=== PATIENT | female | born 1975 | race Caucasian/White ===

== ENCOUNTER 2018-03-26 00:31 | Emergency (ER) | END 2018-03-26 03:56 | disposition home or self-care (01) ==

== ENCOUNTER 2018-08-03 12:00 | Inpatient (IN) | END 2018-08-05 15:45 | disposition home or self-care (01) | DRG 572 ==

== ENCOUNTER 2018-08-07 14:12 | Emergency (ER) | END 2018-08-07 19:37 | disposition home or self-care (01) ==

== ENCOUNTER 2019-04-25 08:03 | Observation (INO) | payer BC ==
[2019-04-25] VITALS (22 sets, daily range): BP systolic 100–137; BP diastolic 61–80; PULSE 58–92; RESP 10–18; Ht 170.2 cm; Wt 99.4 kg
[~2019-04-25] VITALS: Ht 170.2 cm; Wt 99.4 kg
[2019-04-25] MEDS: SOD CHLORIDE 0.9% 1,000 ML IV SCH ×2 (07:00→20:20)
[~2019-04-25 08:03] MED LIST: ALPR0.254 PO; BEN25 PO; BISA5TAB6 PO; DOCU-144 PO; HYDR-3601 PO; IBUP-1542 PO; NICO-546 TD; OXYC-279 PO; POLY17PO6 PO
[2019-04-25] MEDS ORDERED: MIDAZOLAM 1 MG/ML 2 ML INJ ONE (11:05)
[2019-04-25] MEDS ORDERED: PROPOFOL 20 ML ONE (11:05)
[2019-04-25] MEDS ORDERED: CLINDAMYCIN 900 MG (PMX) 50 ML IVPB ONE (11:05)
[2019-04-25] MEDS ORDERED: SUCCINYLCHOLINE CHLORIDE 100 MG/5 ML SYG IV ONE (11:05)
[2019-04-25] MEDS ORDERED: LIDOCAINE 2% (SDV) 5 ML INJ ONE (11:05)
[2019-04-25] MEDS ORDERED: ONDANSETRON 4 MG INJ ONE (12:30)
[2019-04-25] MEDS ORDERED: METOCLOPRAMIDE 10 MG INJ ONE (12:30)
[2019-04-25] MEDS ORDERED: DEXAMETHASONE 4 MG/ML 5 ML INJ ONE (12:30)
[2019-04-25] MEDS ORDERED: FAMOTIDINE 20 MG INJ ONE (12:31)
[2019-04-25] MEDS ORDERED: EPHEDrine 25 MG/5 ML SYG ONE (12:38)
[2019-04-25] MEDS ORDERED: DIPHENHYDRAMINE 50 MG INJ IV PRN (13:00)
[2019-04-25] MEDS ORDERED: ONDANSETRON 4 MG INJ IV PRN ×2 (13:00→14:00)
[2019-04-25] MEDS ORDERED: MEPERIDINE 25 MG INJ IV PRN (13:00)
[2019-04-25] MEDS ORDERED: HYDROmorphONE 1 MG/5 ML IV SYRINGE IV PRN ×2 (13:00)
[2019-04-25] MEDS ORDERED: ALBUTEROL 0.083% (NEB) 2.5 MG/3 ML AMP HHN PRN (13:00)
[2019-04-25] MEDS ORDERED: OXYCODONE/ACETAMINOPHEN (5/325) TAB PO PRN ×2 (13:00)
[2019-04-25] MEDS ORDERED: ISOSULFAN BLUE 1% 5 ML INJ SC ONE (13:05)
[2019-04-25] MEDS ORDERED: ACETAMINOPHEN 1000MG/100ML IV 100 ML IVPB PRN (14:00)
[2019-04-25] MEDS: HYDROmorphONE 1 MG/5 ML IV SYRINGE IV PRN ×3 (14:22→14:33)
[2019-04-25] MEDS: D5W-0.45 NACL + KCL 20 MEQ 1,000 ML IV SCH ×2 (16:04→21:35)
[2019-04-25] MEDS: DIPHENHYDRAMINE 25 MG CAP PO PRN (17:41)
[2019-04-25] MEDS: morphine 2 MG INJ IV PRN ×2 (20:42→23:24)
[2019-04-26] MEDS ORDERED: ALPRAZOLAM 0.25 MG TAB PO SCH
[2019-04-26] MEDS ORDERED: HYDROCODONE/APAP (5/325) TAB PO PRN
[2019-04-26 00:05] VITALS: BP 118/73; PULSE 57; RESP 16
[2019-04-26] MEDS: HYDROmorphONE 0.5 MG/0.5 ML SYG IV PRN ×2 (00:21→04:40)
[2019-04-26] MEDS: D5W-0.45 NACL + KCL 20 MEQ 1,000 ML IV SCH ×2 (00:22→13:20)
[2019-04-26] MEDS: BISACODYL (EC) 5 MG TAB PO PRN ×2 (00:26→08:35)
[2019-04-26] MEDS: DIPHENHYDRAMINE 25 MG CAP PO PRN ×2 (00:36→10:52)
[2019-04-26] MEDS ORDERED: ALPRAZOLAM 0.25 MG TAB PO PRN (05:00)
[2019-04-26 08:03] VITALS: BP 122/60; PULSE 49; RESP 16
[2019-04-26] MEDS: DOCUSATE SODIUM 100 MG CAP PO SCH ×2 (08:31)
[2019-04-26] MEDS: SOD CHLORIDE 0.9% 1,000 ML IV SCH (10:43)
== END 2019-04-26 14:22 | disposition home or self-care (01) ==
LOC: SDS 08:03 → REC 14:02 → MS1 15:20
PROVIDERS: ADMIT Surgery Surgical Oncology; ATTEND Surgery Surgical Oncology
DX: C50.412 Malignant neoplasm of upper-outer quadrant of left female breast (principal); E66.9 Obesity, unspecified; Z68.34 Body mass index [BMI] 34.0-34.9, adult; F17.200 Nicotine dependence, unspecified, uncomplicated; K76.0 Fatty (change of) liver, not elsewhere classified
CPT/HCPCS: 19301; 38525; 38900; 80048; 83735; 84100; 85025; 88307; 88331; J1100; J1170; J2250; J2270; J2405; J2765; J3010; J3480; J7030; Z7500; Z7512; Z7610; 88341; 88342; 96361; 96374; 96376; G0378; J0131; Q9968